=== PATIENT | female | born 1945 | race African-American/Black ===

== ENCOUNTER 2017-09-24 15:45 | Emergency (ER) | payer OTHER ==
[~2017-09-24] VITALS: Ht 157.5 cm; Wt 81.7 kg
--- NOTE | ~2017-09-24 | EKG ---
[address] [address] [place] [address] ELECTROCARDIOGRAM REPORT Name: PRASANNA LEVI Room #: [facility]#: [id number] Admission: 09/24/17 Attend Phys: Discharge: 09/24/17 Date of : 49 Report #: [id number] THIS REPORT FOR: //name// [facility] ED Test Date: 2017-09-24 Test Time: 16:35:03 Pat Name: PRASANNA LEVI Department: Room: Gender: F Acquisition Associate: KF : 1945 Requested By: Isaias Goyal Order Number: [id number] MD: Guero Rodriguez Measurements Intervals [place] Rate: 60 P: 25 MS: 143 QRS: -15 QRSD: 91 T: 103 QT: 442 QTc: 442 Interpretive Statements Sinus rhythm Borderline left axis deviation Low voltage, extremity leads Nonspecific T abnormalities Compared to ECG 07/30/2012 05:42:28 no significant change was found Electronically Signed On 09-25-2017 8:40:38 CDT by Guero Rodriguez [email or web address] <ELECTRONICALLY SIGNED> By: Guero Rodriguez MD, [facility] 09/25/17 0840 1635 34 Guero Rodriguez MD, [facility] /EPI
[~2017-09-24 15:45] MED LIST: ALPRAZOLAM 0.0.25 M1 PO; FLONASE 0.05%50 MCG NASAL; LORAZEPAM 2MG TA2 M1 PO; LORTAB 5 MG/5001 TA1 PO; LOVASTAT20 PO; PAROXETINE HCL20 MG PO; PHENERGAN 25 MG25 MG PO; PROMETHAZINE-C120 ML PO; XANAX 0.25 MG0.25 MG PO; ZOFRAN4 MG PO
[2017-09-24 16:36] LABS: BASOPHILS 0.9 % (0.0-2.0); HEMATOCRIT 40.9 % (37.0-47.0); HEMOGLOBIN 13.6 gm/dL (12.0-15.0); LYMPHOCYTES 31.1 % (24.0-44.0); MCH 29.3 pg (26.0-34.0); MCHC 33.3 g/dL (28.0-37.0); MCV 87.9 fL (80.0-100.0); MONOCYTES 9.6 % (1.0-8.0); PLATELET COUNT 300 thou/uL (150-400); POLYS 56.4 % (36.0-66.0); RBC 4.65 mil/uL (4.20-5.00); RDW 13.9 % (10.5-14.5); WBC 5.4 thou/uL (4.0-11.0)
[2017-09-24 16:46] LABS: ANION GAP 7 mmol/L (7-16); BUN 12 mg/dL (7-18); CALCIUM 8.8 mg/dL (8.5-10.1); CHLORIDE 105 mmol/L (98-107); CO2 29 mmol/L (21-32); CREATININE 0.9 mg/dL (0.6-1.0); GLUCOSE 108 mg/dL (74-106); POTASSIUM 3.7 mmol/L (3.5-5.1); SODIUM 141 mmol/L (136-145)
[2017-09-24 16:55] LABS: ALBUMIN 3.8 g/dL (3.4-5.0); SGOT 19 U/L (15-37); SGPT 23 U/L (30-65); TOTAL BILIRUBIN 0.4 mg/dL (<0.1-1.0); TOTAL PROTEIN 8.3 g/dL (6.4-8.2); TROPONIN-I <0.06 ng/mL (<0.06)
[2017-09-24] MEDS ORDERED: VENTOLIN HFA 1818 GM INH (18:31)
[2017-09-24] MEDS ORDERED: ATIVAN0.5 MG PO (18:31)
[2017-09-24 19:05] VITALS: BP 154/66
== END 2017-09-24 19:05 | disposition home or self-care (01) ==
LOC: ER 15:45
PROVIDERS: Emergency Medicine
DX: F41.9 Anxiety disorder, unspecified (principal); R06.00 Dyspnea, unspecified; R07.9 Chest pain, unspecified; R10.9 Unspecified abdominal pain; R51 Headache; I25.2 Old myocardial infarction; I10 Essential (primary) hypertension; E78.00 Pure hypercholesterolemia, unspecified

== ENCOUNTER 2019-10-17 05:00 | Emergency (ER) | payer OTHER ==
[~2019-10-17] VITALS: Ht 157.5 cm; Wt 90.7 kg
[~2019-10-17 05:00] MED LIST changes: +ATIVAN0.5 MG PO; +VENTOLIN HFA 1818 GM INH
[2019-10-17] MEDS ORDERED: NORVASC 2.5 MG2.5 M1 PO (05:07)
[2019-10-17] MEDS ORDERED: XANAX 0.25 MG0.25 MG PO (06:16)
[2019-10-17] MEDS ORDERED: PAROXETINE HCL20 MG PO (06:16)
[2019-10-17 06:31] VITALS: BP 173/77
--- NOTE | 2019-10-18 10:47 | EKG ---
[facility] [place] [address] ELECTROCARDIOGRAM REPORT Name: PRASANNA LEVI Room #: DEP [facility]#: [id number] Admission: 10/17/19 Attend Phys: Discharge: 10/17/19 Date of : 49 Report #: [id number] THIS REPORT FOR: cc: [facility] - Clinic physician unknown [facility] - Clinic physician unknown Anil Burton MD ~ THIS REPORT FOR: //name// [facility] ED Test Date: 2019-10-17 Test Time: 05:37:35 Pat Name: PRASANNA LEVI Department: Room: Gender: Senior Research Executive: LAURA : 1945 Requested By: Giuliana Zimmer Order Number: [id number] MD: Anil Burton Measurements Intervals [place] Rate: 79 P: 48 [place]: 149 QRS: -36 QRSD: 87 T: 103 QT: 458 QTc: 526 Interpretive Statements Sinus rhythm LOW VOLTAGE THROUGHOUT Compared to ECG 09/24/2017 16:35:03 Electronically Signed On 10-18-2019 10:46:55 CDT by Anil Burton [email or web address] <ELECTRONICALLY SIGNED> By: Anil Burton MD 10/18/19 1046 0537 0537 Anil Burton MD /PJ
== END 2019-10-17 06:32 | disposition home or self-care (01) ==
LOC: ER 05:00
DX: F41.9 Anxiety disorder, unspecified (principal); Z79.899 Other long term (current) drug therapy

== ENCOUNTER 2020-12-03 05:03 | Emergency (ER) | payer OTHER ==
[~2020-12-03] VITALS: Ht 157.5 cm; Wt 83.9 kg
[~2020-12-03 05:03] MED LIST changes: +NORVASC 2.5 MG2.5 M1 PO
[2020-12-03] MEDS ORDERED: HYDROCHLOROTHIA25 M1 PO (05:13)
[2020-12-03] MEDS ORDERED: VYZULTA5 ML OPHTHALMIC (05:14)
[2020-12-03] MEDS ORDERED: COSOPT OCUMETER10 M1 EA. EYE (05:14)
[2020-12-03] MEDS ORDERED: ALPHAGAN P5 ML OPHTHALMIC (05:14)
[2020-12-03 05:35] LABS: ABSOLUTE NEUTROPHILS 2.3 thou/uL (1.4-8.2); BASOPHILS 0.5 % (0.0-2.0); EOSINOPHILS 3.3 % (0.0-3.0); HEMATOCRIT 37.1 % (37.0-47.0); HEMOGLOBIN 12.3 gm/dL (12.0-15.0); LYMPHOCYTES 31.2 % (24.0-44.0); MCH 29.6 pg (26.0-34.0); MCHC 33.2 g/dL (28.0-37.0); MCV 89.1 fL (80.0-100.0); MONOCYTES 10.4 % (1.0-8.0); PLATELET COUNT 269 thou/uL (150-400); POLYS 54.6 % (36.0-66.0); RBC 4.16 mil/uL (4.20-5.00); RDW 13.7 % (10.5-14.5); WBC 4.3 thou/uL (4.0-11.0)
[2020-12-03 05:38] LABS: CALCIUM 8.5 mg/dL (8.5-10.1); CREATININE 0.9 mg/dL (0.6-1.0); POTASSIUM 3.5 mmol/L (3.5-5.1)
[2020-12-03 05:48] LABS: ALBUMIN 3.4 g/dL (3.4-5.0); TOTAL BILIRUBIN 0.3 mg/dL (0.2-1.0); TOTAL PROTEIN 7.5 g/dL (6.4-8.2)
[2020-12-03 06:23] LABS: URINE BILIRUBIN NEGATIVE (Negative); URINE BLOOD NEGATIVE (Negative); URINE CLARITY SL CLOUDY; URINE COLOR YELLOW; URINE GLUCOSE-RANDOM* NEGATIVE (Negative); URINE KETONES NEGATIVE (Negative); URINE LEUKOCYTES-REFLEX NEGATIVE (Negative); URINE NITRITE-REFLEX NEGATIVE (Negative); URINE PROTEIN (DIPSTICK) NEGATIVE (Negative); URINE SPECIFIC GRAVITY <= 1.005 (1.005-1.035); URINE UROBILINOGEN 0.2 E.U./dl (0.2-1.0)
[2020-12-03 07:51] VITALS: BP 130/61
--- NOTE | 2020-12-03 11:52 | EKG ---
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 : 1945 Requested By: Josué Velazquez Order Number: [id number] MD: Parminder Ochoa Measurements Intervals [place] Rate: 65 P: 44 [place]: 149 QRS: -27 QRSD: 82 T: 152 QT: 560 QTc: 583 Interpretive Statements Sinus rhythm Low voltage, extremity leads Nonspecific T abnrm, anterolateral leads Compared to ECG 10/17/2019 05:37:35 No significant change Electronically Signed On 12-03-2020 11:52:04 CDT by Parminder Ochoa [email or web address] <ELECTRONICALLY SIGNED> By: Parminder Ochoa MD 12/03/20 1152 0514 0514 Parminder Ochoa MD /PJ
== END 2020-12-03 07:55 | disposition home or self-care (01) ==
LOC: ER 05:03
PROVIDERS: Emergency Medicine
DX: R51.9 Headache, unspecified (principal); R20.2 Paresthesia of skin; F41.9 Anxiety disorder, unspecified; Z79.899 Other long term (current) drug therapy

== ENCOUNTER 2021-04-14 11:42 | Inpatient (IN) | payer OTHER ==
[~2021-04-14] VITALS: Ht 157.5 cm; Wt 81.6 kg
--- NOTE | ~2021-04-14 | EMS ---
[place] [address] EMS Patient Care Report Name: PRASANNA LEVI Room #: 351-P ADM IN M.R.#: [id number] Admission: 04/14/21 Attend Phys: Priya Pacheco MD Discharge: Date of : 49 Report #: [id number] THIS REPORT FOR: //name// Report Transmitted: 04/16/2021 14:28 EMS Care Summary [place], [place] Incident [id number] @ 04/14/2021 11:[address] [facility] [address] [place] [address] Patient PRASANNA LEVI Female, 75 Years 1945 Patient Address [address] [place] [address] Patient History Other,Hypertension (HTN),Anxiety Disorder (Panic Attacks),Anxiety,Glaucoma, Patient Allergies No known allergies, Patient Medications Naproxen, Amlodipine, Chief Complaint COVID COMPLAINTS Disposition Transported No Lights/[place] Dispatch Reason Headache Transported To [facility] Narrative UPON ARRIVAL TO SCENE, PT FOUND SEATED ON COUCH ALERT AND ORIENTED. PT STATED SHE HAS HAD COVID LIKE SYMPTOMS FOR ABOUT 10 DAYS NOW, THOUGHT THEY WOULD GET BETTER BUT NOW WANTS TO GO TO ER. PT WAS TESTED YESTERDAY AT CLINIC BUT IS STILL WAITING ON RESULTS. VITALS ASSESSED AND TRANSR[place] [address] EMS Patient Care Report Name: PRASANNA LEVI Room #: 351-P [facility] IN ..#: [id number] Admission: 04/14/21 Attend Phys: Priya Pacheco MD Discharge: Date of : 49 Report #: [id number] NO CHANGES IN COMPLAINTS EN ROUTE. UPON ARRIVAL PT TAKEN TO ER AND CARE LEFT WITH STAFF NURSE. Initial Vitals @11:25P: 88,R: 18,BP: 139/81,Pain: 6/10,GCS: 15,Glucose: 104,CO: 0,SpO2: 98,Revised Trauma: 12, @11:28P: 89,R: 16,BP: 130/89,Pain: 6/10,GCS: 15,CO: 0,SpO2: 99,Revised Trauma: 12, Assessments @11:21MENTAL:Place Oriented,Time Oriented,Person Oriented,Event Oriented,SKIN:Hot,HEENT:Head/Face: No Abnormalities,Neck/Airway: No Abnormalities,LUNG SOUNDS:General: No Abnormalities,ABDOMEN:General: No Abnormalities,PELVIS//GI:EXTREMITIES:Left Arm: No Abnormalities,Right Arm: No Abnormalities,Left Leg: No Abnormalities,Right Leg: No Abnormalities,PULSE:NEURO:Other, Impression COVID-19 - Suspected - no known exposure Procedures @11:21 ALS Assessment Response: UnchangedSucceeded Timeline 11:08,Call Received 11:08,Dispatch Notified 11:13,Dispatched 11:13,En Route 11:19,On Scene 11:20,At Patient 11:21,ALS Assessment,Response: UnchangedSucceeded, 11:25,BP: 139/81 M,PULSE: 88,RR: 18 R,SPO2: 98 Ox,ETCO2: ,B,PAIN: 6,GCS: 15, 11:26,Depart Scene 11:28,BP: 130/89 M,PULSE: 89,RR: 16 R,SPO2: 99 Ox,ETCO2: ,BG: ,PAIN: 6,GCS: 15, 11:38,At Destination 11:47,Call Closed Disclaimer v1.1 Copyright 2021 [employer] This EMS Care Summary contains data elements from the applicable legal record (which may be displayed differently). It is designed to provide pertinent information for the following purposes: continuity of care, clinical quality, and state data reporting. The complete legal record is available to ED staff and administrators of the receiving hospital in [facility]'s Patient Tracker. All data [address] [address] EMS Patient Care Report Name: PRASANNA LEVI Room #: 351-P ADM IN .R.#: [id number] Admission: 04/14/21 Attend Phys: Priya Pacheco MD Discharge: Date of : 49 Report #: [id number] is provided "as is."
[~2021-04-14 11:42] MED LIST changes: +ALPHAGAN P5 ML OPHTHALMIC; +COSOPT OCUMETER10 M1 EA. EYE; +HYDROCHLOROTHIA25 M1 PO; +VYZULTA5 ML OPHTHALMIC
[2021-04-14 11:48] VITALS: BP 120/79
[2021-04-14 12:25] LABS: ABSOLUTE NEUTROPHILS 1.8 thou/uL (1.4-8.2); BASOPHILS 0.5 % (0.0-2.0); EOSINOPHILS 0.2 % (0.0-3.0); HEMATOCRIT 42.3 % (37.0-47.0); HEMOGLOBIN 13.2 gm/dL (12.0-15.0); LYMPHOCYTES 29.3 % (24.0-44.0); MCH 29.1 pg (26.0-34.0); MCHC 31.3 g/dL (28.0-37.0); MCV 92.8 fL (80.0-100.0); MONOCYTES 21.3 % (1.0-8.0); PLATELET COUNT 265 thou/uL (150-400); POLYS 48.7 % (36.0-66.0); RBC 4.56 mil/uL (4.20-5.00); RDW 13.7 % (10.5-14.5); WBC 3.7 thou/uL (4.0-11.0)
[2021-04-14 12:44] LABS: CALCIUM 8.7 mg/dL (8.5-10.1); CREATININE 0.4 mg/dL (0.6-1.0); POTASSIUM 3.7 mmol/L (3.5-5.1)
[2021-04-14 12:49] LABS: ALBUMIN 3.3 g/dL (3.4-5.0); TOTAL BILIRUBIN 0.6 mg/dL (0.2-1.0); TOTAL PROTEIN 7.8 g/dL (6.4-8.2)
--- NOTE | 2021-04-14 20:39 | EKG ---
[address] [place] [address] ELECTROCARDIOGRAM REPORT Name: PRASANNA LEVI Room #: 170-11 ADM IN .R.#: [id number] Admission: 04/14/21 Attend Phys: Priya Pacheco MD Discharge: Date of : 49 Report #: [id number] [facility] ED Test Date: 2021-04-14 Test Time: 12:19:41 Pat Name: PRASANNA LEVI Department: Room: 170 Gender: F Provider Relations Advocate: SANGEETA : 1945 Requested By: Jennifer Valiente Order Number: [id number] MD: Guero Rodriguez Measurements Intervals [place] Rate: 76 P: 61 ME: 122 QRS: 259 QRSD: 88 T: -86 QT: 476 QTc: 536 Interpretive Statements Sinus rhythm Nonspecific ST and T wave abnormality Prolonged QT interval Baseline wander in lead(s) V1 Compared to ECG 12/03/2020 05:14:40 Nonspecific change in the ST and T wave segments Electronically Signed On 04-14-2021 20:39:22 VMWARE ADMINISTRATOR by Guero Rodriguez [email or web address] <ELECTRONICALLY SIGNED> By: Guero Rodriguez MD, [facility] 04/14/219 Guero Rodriguez MD, [facility] /EPI
--- NOTE | 2021-04-14 20:42 | EKG ---
[address] [address] [facility] [place] [address] ELECTROCARDIOGRAM REPORT Name: PRASANNA LEVI Room #: 170-11 ADM IN ..#: [id number] Admission: 04/14/21 Attend Phys: Priya Pacheco MD Discharge: Date of : 49 Report #: [id number] [facility] ED Test Date: 2021-04-14 Test Time: 15:43:48 Pat Name: PRASANNA LEVI Department: Room: 170 Gender: F Jute Bag Clipper: CLAUDIA : 1945 Requested By: Jenny Kemp Order Number: [id number] MD: Guero Rodriguez Measurements Intervals [place] Rate: 82 P: 46 [place]: 129 QRS: 247 QRSD: 94 T: 77 QT: 421 QTc: 492 Interpretive Statements Sinus rhythm Left anterior fascicular block Poor R wave progression Borderline prolonged QT interval Compared to ECG 04/14/2021 12:19:41 No significant changes found Electronically Signed On 04-14-2021 20:42:25 SENIOR QA AUTOMATION ENGINEER by Guero Rodriguez [email or web address] <ELECTRONICALLY SIGNED> By: Guero Rodriguez MD, [facility] 04/14/212041 42 42 Guero Rodriguez MD, [facility] /EPI
[2021-04-15] VITALS (8 sets, daily range): BP systolic 101–118; BP diastolic 48–71
--- NOTE | 2021-04-15 03:46 | NUR ---
PT ARRIVED FROM ED. ASSISTED TO BSC, PT HAD BM. PT IS SLEEPY AND IRRITABLE. PT COMPLETED ADMISSION PROCESS, REVIEWED HOME MED LIST. PT STATED SHE BELIEVES SHE IS TAKING ATIVAN NOT XANAX. LUNGS DIMINISHED, IVF INTACT. BED ALARM ON. REPORTED COVID SYMPTOMS FOR LAST 10 DAYS, FEVER, HEADACHE, ACHES, LOSS OF SMELL TASTE, N/V/D. PT PASSED OUT WHEN AMBULATING TO RESTROOM AND SHE STATED HER SON CALLED EMS. PT IDENTIFIED HER DAUGHTER EMERGENCY CONTACT ROXANNA XAVIER. PT PROVIDED SNACK, SHE STATED SHE WAS HUNGRY.
[2021-04-15 05:50] LABS: HEMATOCRIT 38.5 % (37.0-47.0); HEMOGLOBIN 12.3 gm/dL (12.0-15.0); MCH 28.9 pg (26.0-34.0); MCHC 31.9 g/dL (28.0-37.0); MCV 90.6 fL (80.0-100.0); PLATELET COUNT 237 thou/uL (150-400); RBC 4.26 mil/uL (4.20-5.00); RDW 13.5 % (10.5-14.5); WBC 2.9 thou/uL (4.0-11.0)
[2021-04-15 05:58] LABS: ALBUMIN 2.9 g/dL (3.4-5.0); CALCIUM 8.4 mg/dL (8.5-10.1); CREATININE 0.7 mg/dL (0.6-1.0); MAGNESIUM 2.2 mg/dL (1.8-2.4); PHOSPHORUS 3.8 mg/dL (2.5-4.9); TOTAL BILIRUBIN 0.4 mg/dL (0.2-1.0); TOTAL PROTEIN 7.6 g/dL (6.4-8.2)
[2021-04-15 06:05] LABS: CHOLESTEROL 129 mg/dL (<200); HDL CHOLESTEROL 27 mg/dL (>40); LDL CHOLESTEROL 79 mg/dL (<100); TC:HDL 4.8 Ratio (Not establshd); TRIGLYCERIDE 116 mg/dL (<150); VLDL 23 mg/dL (<40)
[2021-04-15 06:22] LABS: POTASSIUM 2.7 mmol/L (3.5-5.1)
[2021-04-15 07:45] LABS: PLATELET ESTIMATE NORMAL
--- NOTE | 2021-04-15 16:55 | NUR ---
RN ASSUMED PT'S CARE AT 0700AM, PT IS A&OX4, PT IS ON O2 1-2L/MIN/NC, PT'S VS AND O2SAT ARE STABLE AT DAY SHIFT , PT IS CONTINUING IV FLUID , IV ABX AND LOW POTASSIUM REPLACEMENT, PT'S DAIRRHEA HAS IMPROVED BY THIS TIME , PT HAS TAKING MEDICATION FOR DAIRRHEA . PT GETS TO TO CHAIR WITH ASSIST. PT DENIES PAIN AND SOB BY THIS TIME.
[2021-04-15 22:02] LABS: URINE BILIRUBIN 2+ (Negative); URINE BLOOD 1+ (Negative); URINE CLARITY CLEAR; URINE COLOR YELLOW; URINE GLUCOSE-RANDOM* NEGATIVE (Negative); URINE KETONES NEGATIVE (Negative); URINE LEUKOCYTES-REFLEX NEGATIVE (Negative); URINE NITRITE-REFLEX NEGATIVE (Negative); URINE PROTEIN (DIPSTICK) 1+ (Negative); URINE SPECIFIC GRAVITY <= 1.005 (1.005-1.035); URINE UROBILINOGEN 0.2 E.U./dl (0.2-1.0)
[2021-04-15 22:14] LABS: ICTOTEST (BILI CONFIRMATORY) Positive (Negative)
[2021-04-15 22:17] LABS: CASTS None Seen /LPF (None Seen); CRYSTALS None Seen /LPF (None Seen); MUCUS 0-3 Light strn/LPF (None Seen); SQUAMOUS 4-10 Moderate /LPF (0-3); URINE RBC 1-2 Rare /HPF (NONE SEEN); URINE WBC-REFLEX 6-15 Few /HPF (0-5)
[2021-04-16 03:17] VITALS: BP 113/55
[2021-04-16 05:58] LABS: ABSOLUTE NEUTROPHILS 1.6 thou/uL (1.4-8.2); BASOPHILS 2.3 % (0.0-2.0); EOSINOPHILS 0.7 % (0.0-3.0); HEMATOCRIT 34.8 % (37.0-47.0); HEMOGLOBIN 11.3 gm/dL (12.0-15.0); LYMPHOCYTES 31.5 % (24.0-44.0); MCH 28.7 pg (26.0-34.0); MCHC 32.4 g/dL (28.0-37.0); MCV 88.6 fL (80.0-100.0); MONOCYTES 16.3 % (1.0-8.0); PLATELET COUNT 256 thou/uL (150-400); POLYS 49.2 % (36.0-66.0); RBC 3.93 mil/uL (4.20-5.00); RDW 13.4 % (10.5-14.5); WBC 3.3 thou/uL (4.0-11.0)
--- NOTE | 2021-04-16 06:03 | NUR ---
Slept well during the night. Blind on left eye.Forgetful at times and she has been reoriented. Cont. on enhanced precaution , afebrile. Tolerating room air well with no respiratory distress. Up with assist x1 per commode.
[2021-04-16 06:14] LABS: ALBUMIN 2.7 g/dL (3.4-5.0); CALCIUM 8.6 mg/dL (8.5-10.1); CREATININE 0.6 mg/dL (0.6-1.0); MAGNESIUM 2.2 mg/dL (1.8-2.4); PHOSPHORUS 3.4 mg/dL (2.6-4.7); POTASSIUM 3.5 mmol/L (3.5-5.1); TOTAL BILIRUBIN 0.4 mg/dL (0.2-1.0); TOTAL PROTEIN 7.3 g/dL (6.4-8.2)
[2021-04-16 07:12] VITALS: BP 143/76
[2021-04-16 11:23] VITALS: BP 114/54
--- NOTE | 2021-04-16 11:43 | 2DMMODE ---
[facility] [place] [address] 2 D/M-MODE ECHOCARDIOGRAM Name: PRASANNA LEVI Room #: 351-P ADM IN M.R.#: [id number] Admission: 04/14/21 Attend Phys: Priya Pacheco MD Discharge: Date of : 49 Report #: [id number] THIS REPORT FOR: cc: FAM - Family physician unknown FAM - Family physician unknown Maksim Otoole MD [facility] ~ APPROVED REPORT Study performed: 04/16/2021 10:59:29 EXAM: Limited 2D, Doppler, and color-flow Echocardiogram Patient Location: In-Patient Room #: 351 Status: routine BSA: 1.83 HR: 66 bpm BP: 143/76 mmHg Rhythm: NSR Other Information Study Quality: Fair Technically limited study due to patient sitting in recliner. Indications Chest pain, Short of breath, elevated troponin, COVID + Hx: CO. Aortic Valve AoV Peak Josemanuel.: 1.25 m/s AO Peak Gr.: 6.24 mmHg Mitral Valve E/A Ratio: 0.8 MV Decel. Time: 214.58 ms MV E Max Josemanuel.: 0.83 m/s MV A Josemanuel.: 1.01 m/s MV PHT: 62.23 ms Tricuspid Valve RAP Estimate: 5.00 mmHg Left Ventricle The left ventricle is normal size. Left ventricular systolic function is normal. LVEF is 60%. Mild diastolic dysfunction is present. [facility] [address] [place] [address] 2 D/M-MODE ECHOCARDIOGRAM Name: PRASANNA LEVI Room #: 351-P ADM IN .R.#: [id number] Admission: 04/14/21 Attend Phys: Priya Pacheco, Discharge: Date of : 49 Report #: [id number] Right Ventricle The right ventricle is normal size. The right ventricular systolic function is normal. Atria The left atrium size is normal. The right atrium size is normal. Aortic Valve The aortic valve is normal in structure. Trace aortic regurgitation. There is no aortic valvular stenosis. Mitral Valve The mitral valve is normal in structure. There is no mitral valve regurgitation noted. No evidence of mitral valve stenosis. Tricuspid Valve The tricuspid valve is normal in structure. There is no tricuspid valve regurgitation noted. Unable to assess PA pressure. Pulmonic Valve Pulmonic valve is poorly visualized. Great Vessels The aortic root is normal in size. Ascending aorta is not well visualized. IVC is normal in size and collapses >50% with inspiration. Pericardium There is no pericardial effusion. <Conclusion> Normal left ventricle size/wall thickness central ejection fraction of 60 % Grade 1 diastolic dysfunction Normal right ventricle size/function Normal atrial size Normal aortic/mitral valve structure and function No tricuspid valve insufficiency No pericardial effusion Normal aortic root size. <ELECTRONICALLY SIGNED> By: Maksim Otoole MD, FACC 04/16/21 1143 1143 1143 Maksim Otoole MD, FAC /INF
--- NOTE | 2021-04-16 14:17 | NUR ---
INITIAL ASSESSMENT: Received consult. SW reviewed chart and spoke with nursing and attending physician. Pt was admitted from home due to pneumonia. Pt placed in Enhanced Isolation due to COVID. Per chart, pt has not received a COVID vaccination. Pt is afebrile and on room air. Pt is on IV abx. Therapy has been ordered. LENA spoke with pt via phone. Introduced role of SW. Pt is alert/orientated x 4. Pt reports she lives at home with her son. Prior to admission, pt was independent with ADLs. No use of DME. No hx of HH or post-acute placement. All needs are met on the main level. No stairs. Pt's PCP is Dr. Radha Velasquez. Plan is for pt to discharge home when medically stable. LENA is following to assist as needed with discharge planning.
[2021-04-16 15:14] VITALS: BP 121/49
--- NOTE | 2021-04-16 18:30 | NUR ---
RN ASSUMED PT'S CARE AT 0700AM, PT IS A&OX4, PT IS CONTINUING IV ABX AND TREAT COVID MEDICATIONS, PT 'S VS ARE STABLE BY THIS TIME, PT IS ON ROOM AIR , PT DENIES PAIN AND SOB AT DAY SHIFT. BUT PT STILL HAS DIARRHEA.
--- NOTE | 2021-04-16 19:07 | HC ---
[facility] [place] [address] CONSULTATION Name: PRASANNA LEVI Room #: 351-P ADM IN M.R.#: [id number] Admission: 04/14/21 Attend Phys: Priya Pacheco MD Discharge: Date of : 49 Report #: [id number] THIS REPORT FOR: cc: FAM - Family physician unknown FAM - Family physician unknown Isaias Luu MD ~ DATE OF SERVICE: 04/15/2021 INFECTIOUS DISEASE CONSULTATION REASON FOR CONSULTATION: I was asked to evaluate concerning COVID-19 infection. HISTORY OF PRESENT ILLNESS: The patient is a 75-year-old unvaccinated for COVID-19 presents with 9 days of nonproductive cough, progressive shortness of breath, myalgias, arthralgias, fatigue, diarrhea, mild GI upset without vomiting. She has been anorexic. Cough has persisted. She has had some chest pain with coughing and deep breathing. She had minimal fever, no chills or sweats. No definite dyspnea at rest, but does have some with exertion. She has no history of tuberculosis, HIV infection or hepatitis. She is a previous smoker. She has had pneumonia in the past. ALLERGIES: None known. MEDICATIONS: As noted on her MAR. FAMILY HISTORY: Coronary artery disease. SOCIAL HISTORY: Past smoker. Occasional alcohol. PAST MEDICAL HISTORY: Anxiety, blind in left eye, TIA, ME, hypertension, hyperlipidemia. REVIEW OF SYSTEMS: A 14-point review of system was negative other than what has been described above. PHYSICAL EXAMINATION: GENERAL: Afebrile and hemodynamically stable. She is alert, cooperative and pleasant. No acute distress. SKIN: Without rash. Mild obesity. No palpable adenopathy. HEENT: Eyes without scleral icterus. Mouth without mucositis. NECK: Supple. LUNGS: Few crackles in the bases bilaterally. No consolidation. HEART: Regular without murmur, gallop or rub. ABDOMEN: Soft and nontender with no hepatosplenomegaly or mass. NEUROLOGIC: Cranial nerves intact. Strength in the upper and lower extremities [address] [address] CONSULTATION Name: LEVI,PRASANNA J Room #: 351-P [facility] IN .R.#: [id number] Admission: 04/14/21 Attend Phys: Priya Pacheco MD Discharge: Date of : 49 Report #: [id number] was symmetric. PSYCHIATRIC: Mood without anxiety. LABORATORY DATA: Reviewed. MICROBIOLOGY: Reviewed. IMAGING: Chest x-ray reviewed. CT scan of the chest reviewed. IMPRESSION: 1. COVID-19 pneumonia with bilateral pulmonary infiltrates, so far no oxygen requirements. 2. Enteritis likely due to COVID-19 infection. 3. Anxiety, controlled. 4. Leukopenia due to COVID-19. 5. Hypokalemia due to her enteritis. 6. Mediastinal adenopathy noted on CT scan, most likely reactive. 7. Underlying coronary artery disease, hypertension, hyperlipidemia. RECOMMENDATION: The patient is now 10 days into her infection making remdesivir not likely of much benefit. She is outside the window for monoclonal antibody infusion. Do not offer Paxlovid for inpatients. Therefore, I would recommend continuing supportive measures for her diarrhea. Rehydrate and reassess in the next 24 hours. If she should develop any hypoxia or progressive respiratory issues will need to consider corticosteroids but now, her oxygenation is satisfactory. It appears that the GI issues and dehydration seem to predominate. <ELECTRONICALLY SIGNED> By: Isaias Luu MD 04/16/21 [id number] 46 Isaias Luu MD /nt
[2021-04-16 20:14] VITALS: BP 141/80
[2021-04-17 03:19] VITALS: BP 149/90
--- NOTE | 2021-04-17 06:42 | NUR ---
Patient making progress towards outcome goals. Vital signs and rhythm stable. Up to BSC without difficulty. Loose BM x 2 Lomotil given with some relief.
[2021-04-17 07:24] VITALS: BP 138/92
[2021-04-17 11:34] VITALS: BP 123/65
[2021-04-17 12:31] LABS: CALCIUM 8.9 mg/dL (8.5-10.1); CREATININE 0.6 mg/dL (0.6-1.0); POTASSIUM 3.4 mmol/L (3.5-5.1)
--- NOTE | 2021-04-17 13:32 | NUR ---
DISCHARGE NOTE: SW reviewed chart and spoke with nursing and attending physician. Pt remains in Enhanced Isolation due to COVID. Pt is afebrile and on rrom air. Rest/exercise oximetry completed earlier today. Pt does not qualify for home O2. SW spoke with pt via phone to discuss discharge plan. Pt is agreeable with discharging home today. Pt states she will have transportation home. No additional SW needs identified at this time. Awaiting discharge ppwk to be completed. SW is available to assist should needs arise.
[2021-04-17 15:09] VITALS: BP 125/60
[2021-04-17] MEDS ORDERED: CEFUROXIME500 MG PO (15:26)
[2021-04-17 16:35] VITALS: BP 125/60
--- NOTE | 2021-04-17 18:15 | NUR ---
RN ASSUMED PT'S CARE AT 0700-1730PM, PT IS A&OX4, PT IS ON ROOM AIR , PT'S VS ARE STABLE, PT'S DIARRHEA HAS IMPROVED, PT DENIES PAIN AND SOB , RN RECEIVED ORDER TO DC PT TO HOME, PT AND PT'S DAUGHTER UNDERSTAND DC TEACHING WELL, INCLUDING PO ABX, AND ISOLATOON DAYS , PT'S DAUGHTER ELECTROLYSIS INVESTIGATOR PT TO HOME AT 1730PM, PT IS HAPPY WITH CARE AT 3 W STAFF.
== END 2021-04-17 17:24 | disposition home or self-care (01) | DRG 177 ==
LOC: ER 11:42 → 3W 17:06 → EROBS 17:06 → 3W 04-15 02:42
PROVIDERS: Hospitalist; Nurse Practitioner; ADMIT Internal Medicine; ATTEND Internal Medicine
DX: U07.1 COVID-19 (principal); J96.01 Acute respiratory failure with hypoxia; I21.4 Non-ST elevation (NSTEMI) myocardial infarction; J15.4 Pneumonia due to other streptococci; J12.82 Pneumonia due to coronavirus disease 2019; F41.9 Anxiety disorder, unspecified; H54.62 Unqualified visual loss, left eye, normal vision right eye; I10 Essential (primary) hypertension; E78.00 Pure hypercholesterolemia, unspecified; K52.9 Noninfective gastroenteritis and colitis, unspecified; R59.0 Localized enlarged lymph nodes; E87.6 Hypokalemia; I25.10 Atherosclerotic heart disease of native coronary artery without angina pectoris; E66.9 Obesity, unspecified; D72.818 Other decreased white blood cell count; E78.5 Hyperlipidemia, unspecified; B33.8 Other specified viral diseases; R07.89 Other chest pain; I25.2 Old myocardial infarction; Z86.73 Personal history of transient ischemic attack (TIA), and cerebral infarction without residual deficits; Z82.49 Family history of ischemic heart disease and other diseases of the circulatory system; Z82.3 Family history of stroke; Z87.891 Personal history of nicotine dependence; Z68.32 Body mass index [BMI] 32.0-32.9, adult; Z79.899 Other long term (current) drug therapy
CPT/HCPCS: 10879